=== PATIENT | male | born 1990 | race Hispanic/Latino ===

== ENCOUNTER 2017-07-05 07:58 | Outpatient (CLI) | payer BC | END 2017-07-05 07:59 | disposition home or self-care (01) | LOC: BICRAD 07:58 | PROVIDERS: ATTEND Physician Assistant Medical | DX: Z03.89 Encounter for observation for other suspected diseases and conditions ruled out (principal); L40.0 Psoriasis vulgaris | CPT/HCPCS: 71046 ==